=== PATIENT | male | born 1975 | race Caucasian/White ===

== ENCOUNTER → 2017-01-30 | Outpatient (CLI) | payer OTHER ==
[~2017-01-30] MED LIST: AMPH15CA3 PO; CARI350T PO; DIAZ5TAB3 PO; GABA-488 PO; OXYC-465 PO
--- NOTE | 2017-01-30 12:18 | Diagnostic Imaging Report ---
PROCEDURE: US abdomen complete. TECHNIQUE: Multiple real-time grayscale images were obtained over the abdomen in various projections. INDICATION: Generalized abdominal pain. FINDINGS: The pancreas is largely obscured by bowel gas. The liver is fairly homogeneous with no focal mass seen. It is slightly hyperechoic suggestive of fatty infiltration. The gallbladder demonstrates no stones or wall thickening. The CBD is 4 mm in caliber. The IVC is largely obscured with visualized portion in the mid abdomen demonstrating color flow. The abdominal aorta is largely obscured by bowel gas. The spleen is 9.3 cm in length, normal. The right kidney is 9.8 cm and the left kidney is 11.6 cm in length. There is no hydronephrosis or focal lesion. No ascites or fluid collection is seen in the abdomen or pelvis. Color Doppler in the jodi hepatis demonstrates hepatopetal flow in the portal vein. Sonographic Hodge's sign is reportedly negative. IMPRESSION: Suggestion of hepatic steatosis. No gallstones or evidence of cholecystitis. Dictated by: Dictated on workstation # [id number]
== END ==
LOC: RAD 06:50
PROVIDERS: ATTEND Internal Medicine
DX: R10.84 Generalized abdominal pain (principal)
CPT/HCPCS: 76700

== ENCOUNTER → 2017-06-18 | Outpatient (CLI) | payer OTHER ==
[2017-06-18 08:19] LABS: BASOPHILS % (AUTO) 0 % (0-10); EOSINOPHILS # (AUTO) 0.2 10^3/uL (0.0-0.3); EOSINOPHILS % (AUTO) 3 % (0-10); LYMPHOCYTES # (AUTO) 1.8 X 10^3 (1.0-4.0); LYMPHOCYTES % (AUTO) 24 % (12-44); MEAN CORPUSCULAR HEMOGLOBIN 31 PG (25-34); MEAN CORPUSCULAR HGB CONC 33 G/DL (32-36); MEAN CORPUSCULAR VOLUME 93 FL (80-99); MEAN PLATELET VOLUME 10.2 FL (7.4-10.4); MONOCYTES # (AUTO) 0.6 X 10^3 (0.0-1.0); MONOCYTES % (AUTO) 8 % (0-12); NEUTROPHILS % (AUTO) 65 % (42-75); PLATELET COUNT 243 10^3/uL (130-400); RED BLOOD COUNT 4.78 10^6/uL (4.35-5.85); RED CELL DISTRIBUTION WIDTH 12.2 % (10.0-14.5); WHITE BLOOD COUNT 7.7 10^3/uL (4.3-11.0)
[2017-06-18 08:35] LABS: ALANINE AMINOTRANSFERASE 37 U/L (0-55); ANION GAP 10 MMOL/L (5-14); ASPARTATE AMINO TRANSFERASE 23 U/L (5-34); BILIRUBIN,TOTAL 0.6 MG/DL (0.1-1.0); BLOOD UREA NITROGEN 17 MG/DL (7-18); BUN/CREATININE RATIO 19; CALCIUM 9.1 MG/DL (8.5-10.1); CARBON DIOXIDE 27 MMOL/L (21-32); CHLORIDE 105 MMOL/L (98-107); CHOLESTEROL 207 MG/DL (< 200); CREATININE SERUM 0.89 MG/DL (0.60-1.30); DIRECT LDL 116 MG/DL (1-129); GFR ESTIMATED > 60; GLUCOSE 90 MG/DL (70-105); SODIUM 142 MMOL/L (135-145); TOTAL PROTEIN 7.3 GM/DL (6.4-8.2); TRIGLYCERIDES 139 MG/DL (<150); VLDL CHOLESTEROL 28 MG/DL (5-40)
== END ==
LOC: LAB 07:50
PROVIDERS: ATTEND Internal Medicine
DX: E78.4 Other hyperlipidemia (principal); R50.9 Fever, unspecified; I10 Essential (primary) hypertension
CPT/HCPCS: 36415; 80053; 80061; 83036; 84443; 85025

== ENCOUNTER → 2017-08-26 | Outpatient (CLI) | payer OTHER ==
--- NOTE | 2017-08-26 11:44 | Diagnostic Imaging Report ---
PROCEDURE: US abdomen complete. TECHNIQUE: Multiple real-time grayscale images were obtained over the abdomen in various projections. INDICATION: Generalized abdominal pain. FINDINGS: The pancreas is largely obscured. The liver demonstrates hyperechogenicity suggestive of fatty infiltration with no focal mass identified. Hepatopetal flow in the portal vein is seen. The CBD is obscured. The gallbladder demonstrates no stones or wall thickening. The spleen is 9.8 cm in length, normal. The right kidney is 11.7 cm, and the left kidney is 11.5 cm in length. No hydronephrosis or focal lesion. No ascites or fluid collection is identified. The abdominal aorta and IVC are largely obscured. Sonographic Hodge sign reportedly negative. IMPRESSION: Increased hepatic echogenicity suggestive of fatty infiltration. ? Dictated by: Dictated on workstation # [id number]
== END ==
LOC: RAD 10:42
PROVIDERS: ATTEND Internal Medicine
DX: R10.84 Generalized abdominal pain (principal)
CPT/HCPCS: 76700

== ENCOUNTER 2017-09-16 10:39 | Outpatient (CLI) | payer OTHER ==
[~2017-09-16] VITALS: Ht 165.1 cm; Wt 70.3 kg
[2017-09-16 10:47] VITALS: BP 122/77
[2017-09-16] MEDS ORDERED: CITA20TA12 PO (10:51)
[2017-09-16] MEDS ORDERED: AMPH15TA PO (10:51)
[2017-09-16] MEDS ORDERED: MONT10TA24 PO (10:52)
[2017-09-16 11:05] LABS: BASOPHILS % (AUTO) 0 % (0-10); EOSINOPHILS # (AUTO) 0.2 10^3/uL (0.0-0.3); EOSINOPHILS % (AUTO) 2 % (0-10); LYMPHOCYTES % (AUTO) 23 % (12-44); MEAN CORPUSCULAR HEMOGLOBIN 31 PG (25-34); MEAN CORPUSCULAR HGB CONC 34 G/DL (32-36); MEAN CORPUSCULAR VOLUME 93 FL (80-99); MEAN PLATELET VOLUME 9.9 FL (7.4-10.4); MONOCYTES # (AUTO) 0.5 X 10^3 (0.0-1.0); MONOCYTES % (AUTO) 6 % (0-12); NEUTROPHILS # (AUTO) 5.9 X 10^3 (1.8-7.8); NEUTROPHILS % (AUTO) 68 % (42-75); PLATELET COUNT 238 10^3/uL (130-400); RED BLOOD COUNT 4.64 10^6/uL (4.35-5.85); WHITE BLOOD COUNT 8.6 10^3/uL (4.3-11.0)
[2017-09-16 11:29] LABS: ALANINE AMINOTRANSFERASE 57 U/L (0-55); ANION GAP 9 MMOL/L (5-14); ASPARTATE AMINO TRANSFERASE 29 U/L (5-34); BILIRUBIN,TOTAL 0.3 MG/DL (0.1-1.0); BLOOD UREA NITROGEN 20 MG/DL (7-18); BUN/CREATININE RATIO 18; CALCIUM 9.2 MG/DL (8.5-10.1); CARBON DIOXIDE 26 MMOL/L (21-32); CHLORIDE 106 MMOL/L (98-107); CREATININE SERUM 1.13 MG/DL (0.60-1.30); GFR ESTIMATED > 60; GLUCOSE 113 MG/DL (70-105); POTASSIUM 4.1 MMOL/L (3.6-5.0); SODIUM 141 MMOL/L (135-145); TOTAL PROTEIN 7.2 GM/DL (6.4-8.2)
== END 2017-09-16 11:00 | disposition home or self-care (01) ==
LOC: PREOP 10:39
PROVIDERS: ATTEND Surgery
DX: Z01.812 Encounter for preprocedural laboratory examination (principal); K82.8 Other specified diseases of gallbladder
CPT/HCPCS: 36415; 80053; 85025; 87081

== ENCOUNTER 2017-09-20 12:55 | Day surgery (SDC) | payer OTHER ==
[~2017-09-20] VITALS: Ht 165.1 cm; Wt 70.3 kg
[~2017-09-20 12:55] MED LIST changes: +AMPH15TA PO; +CITA20TA12 PO; +MONT10TA24 PO
[2017-09-20 13:06] VITALS: BP 136/91
[2017-09-20] MEDS ORDERED: metroNIDAZOLE 500 MG/100 ML IVPB (PRE-MIX) IV ONE (13:15)
[2017-09-20] MEDS ORDERED: ceFAZolin 1 GM/NS 50 ML IVPB IV ONE ×2 (13:15)
[2017-09-20] MEDS: LACTATED RINGERS 1,000 ML IV PRN ×2 (13:30→16:14)
[2017-09-20] MEDS ORDERED: MIDAZOLAM 2 MG/2 ML (VERSED) VIAL IV ONE (14:15)
[2017-09-20] MEDS ORDERED: SEVOFLURANE (ULTANE) 15 ML INHAL SOLN ONE ×7 (14:28→15:56)
[2017-09-20] MEDS ORDERED: ONDANSETRON 4 MG/2 ML (SDV) Z0FRAN ONE (14:28)
[2017-09-20] MEDS ORDERED: LIDOCAINE PF 2% 5 ML (XYLOCAINE) VIAL ONE (14:28)
[2017-09-20] MEDS ORDERED: proPOfol 200 MG/20 ML (DIPRIVAN) VIAL IV ONE (14:28)
[2017-09-20] MEDS ORDERED: DEXAMETHASONE 10 MG/ML (DECADRON) 1 ML VIAL ONE (14:28)
[2017-09-20] MEDS ORDERED: fentaNYL INJECTION 100 MCG/2 ML AMP ONE ×2 (14:29→14:58)
[2017-09-20] MEDS ORDERED: MIDAZOLAM 2 MG/2 ML (VERSED) VIAL ONE (14:29)
[2017-09-20] MEDS ORDERED: BUP/EPI 0.5% 1:200,000 (MARCAINE) 10ML VIAL IJ ONE (14:36)
--- NOTE | 2017-09-20 14:37 | Progress Note-Pre Operative ---
Pre-Operative Progress Note H&P Reviewed The H&P was reviewed, patient examined and no changes noted. Date Seen by Provider: Sep 05, 2017 Time Seen by Provider: 13:25 Date H&P Reviewed: Sep 20, 2017 Time H&P Reviewed: 14:37 Pre-Operative Diagnosis: GB Dyskinesia KEITH MAHER MD Sep 20, 2017 2:37 pm
[2017-09-20] MEDS ORDERED: NEOSTIGMINE (BLOXIVERZ ) 1 MG/1ML 10 ML VIAL ONE (15:30)
[2017-09-20] MEDS ORDERED: GLYCOPYRROLATE 0.2 MG/ML (ROBINUL) 2 ML VIAL ONE (15:30)
--- NOTE | 2017-09-20 15:49 | Operative Report ---
Operative Report Date of Procedure/Surgery Sep 20, 2017 Surgeon (s) KEITH MAHER MD Code Enforcement Supervisor (s): N/A Post-Operative Diagnosis 1. Gallbladder dyskinesia 2. Chronic cholecystitis Procedure Performed Robotic assisted cholecystectomy Description of Procedure Anesthesia Type: General Estimated blood loss (mL): Minimal Specimen(s) collected/removed Gallbladder Description of the Procedure Indication for procedure: This gentleman presented with biliary symptoms due to disconnection of the gallbladder, combined with chronic cholecystitis. He was offered cholecystectomy using minimally invasive technique with robotic assistance. Informed consent was obtained after reviewing the operative details and complications of wound infection, bile leak and persistence of his symptoms. Description of the procedure: He was placed supine on the operative table and general anesthesia induced. A gram of Ancef and 500 mg of Flagyl were administered intravenously as prophylaxis against wound infection. Sequential compression devices were placed around his legs, to minimize the risk of venous thrombosis. Abdomen was prepared and draped in the usual sterile manner. A supraumbilical incision was made and pneumoperitoneum established using Veress needle. Intra- abdominal pressure was maintained at 15 mmHg, using carbon dioxide insufflation. A 12 mm trocar was placed and anatomy visualized using the high definition, 3-dimensional laparoscope associated with da Yaa system. Under direct view, I placed an 8 mm trocar over each side of the abdomen, followed by a 5 mm trocar over the left subcostal region. The patient was then turned into reverse Trendelenburg position, with the right side tilted up. Robotic system was then docked in place. Gallbladder was rather thick due to chronic inflammation. The fundus was retracted cephalad and the infundibulum grasped with Cadiere forceps. Thickened tissue around the neck of the gallbladder was incised using the hook cautery, delineating the cystic duct and the artery. Both were divided between locking clips. Cholecystectomy was completed using the hook cautery. Gallbladder was then placed in an Endo Catch bag and removed via the supraumbilical trocar site. The fascia over this incision was closed using #1 Vicryl using the Hunter Rooney device, under direct laparoscopic view. Skin incisions were closed using 4-0 Vicryl, in a subcuticular fashion. 0.5 percent Marcaine with epinephrine was infiltrated along the incisions, both preemptively and at the conclusion of the operation. He tolerated the procedure well, was extubated in the operating room and taken to the recovery room in a stable condition. Findings of the Procedure See op report Allergies and Home Medications Allergies Coded Allergies: latex (Unverified Allergy, Mild, 08/17/11) Home Medications Citalopram Hydrobromide 20 Mg Tablet, 20 MG PO DAILY, (Reported) Dextroamphetamine/Amphetamine 15 Mg Tablet, 15 MG PO DAILY, (Reported) Gabapentin 300 Mg Capsule, 300 MG PO HS, (Reported) Montelukast Sodium 10 Mg Tablet, 10 MG PO DAILY, (Reported) KEITH MAHER MD Sep 20, 2017 3:49 pm
[2017-09-20] MEDS ORDERED: HYDR-3812 PO (15:50)
--- NOTE | 2017-09-20 15:51 | Discharge Inst-Simple/Standard ---
Discharge Inst-Standard Discharge Medications New, Converted or Re-Newed RX: RX on Chart Patient Instructions/Follow Up Plan of Care/Instructions/FU: Dressings off in 48 hours. Incentive spirometry. Follow-up in 3 weeks. Activity as Tolerated: Yes Discharge Diet: No Restrictions KEITH MAHER MD Sep 20, 2017 3:51 pm
[2017-09-20] MEDS ORDERED: KETOROLAC 30 MG/ML VIAL ONE (16:09)
[2017-09-20] MEDS ORDERED: morphine INJ 10 MG/ML 1ML (SYR OR VIAL) ONE (16:09)
[2017-09-20] MEDS ORDERED: HYDROmorphone (DILAUDID) 2 MG/ML VIAL ONE (16:09)
[2017-09-20] MEDS: morphine INJ 10 MG/ML 1ML (SYR OR VIAL) IVP PRN ×2 (16:15→16:20)
[2017-09-20] MEDS ORDERED: KETOROLAC 30 MG/ML VIAL IVP ONE (16:30)
[2017-09-20] MEDS ORDERED: PROMETHAZINE INJ 25 MG/ML (PHENERGAN) AMP IVP PRN (16:30)
[2017-09-20] MEDS ORDERED: ONDANSETRON 4 MG/2 ML (SDV) Z0FRAN IVP PRN (16:30)
[2017-09-20] MEDS: HYDROmorphone (DILAUDID) 2 MG/ML VIAL IVP PRN ×2 (16:35→16:48)
[2017-09-20 17:25] VITALS: BP 138/89
[2017-09-20] MEDS ORDERED: OXYC-197 PO (17:39)
[2017-09-20] MEDS ORDERED: oxyCODONE/APAP 5/325MG (PERCOCET 5) TABLET ONE (17:52)
[2017-09-20 18:00] VITALS: BP 140/89
[2017-09-20] MEDS ORDERED: oxyCODONE/APAP 5/325MG (PERCOCET 5) TABLET PO ONE (18:30)
[2017-09-20 18:35] VITALS: BP 130/88
[2017-09-20 19:00] VITALS: BP 130/88
== END 2017-09-20 19:15 | disposition home or self-care (01) ==
LOC: SDC 12:55
PROVIDERS: ATTEND Surgery
DX: K81.1 Chronic cholecystitis (principal); J45.909 Unspecified asthma, uncomplicated; F32.9 Major depressive disorder, single episode, unspecified; F41.9 Anxiety disorder, unspecified; F90.9 Attention-deficit hyperactivity disorder, unspecified type; G57.92 Unspecified mononeuropathy of left lower limb; Z79.899 Other long term (current) drug therapy; Z80.0 Family history of malignant neoplasm of digestive organs
CPT/HCPCS: 94664

== ENCOUNTER → 2018-09-10 | Outpatient (CLI) | payer OTHER ==
[~2018-09-10] MED LIST changes: +ACHD5005 PO; +OXYC1TAB87 PO
[2018-09-10 14:50] LABS: ALANINE AMINOTRANSFERASE 45 U/L (0-55); ALBUMIN 4.2 GM/DL (3.2-4.5); ALKALINE PHOSPHATASE 81 U/L (40-136); BILIRUBIN,TOTAL 0.6 MG/DL (0.1-1.0); BUN/CREATININE RATIO 20; CALCIUM 9.2 MG/DL (8.5-10.1); CARBON DIOXIDE 25 MMOL/L (21-32); CHLORIDE 104 MMOL/L (98-107); CHOLESTEROL 215 MG/DL (< 200); GFR ESTIMATED > 60; GLUCOSE 115 MG/DL (70-105); HDL CHOLESTEROL 71 MG/DL (40-60); POTASSIUM 4.1 MMOL/L (3.6-5.0); SODIUM 139 MMOL/L (135-145); TOTAL PROTEIN 7.5 GM/DL (6.4-8.2); TRIGLYCERIDES 88 MG/DL (<150); VLDL CHOLESTEROL 18 MG/DL (5-40)
[2018-09-10 14:51] LABS: BASOPHILS % (AUTO) 0 % (0-10); EOSINOPHILS # (AUTO) 0.1 10^3/uL (0.0-0.3); EOSINOPHILS % (AUTO) 1 % (0-10); HEMATOCRIT 43 % (40-54); HEMOGLOBIN 14.6 G/DL (13.3-17.7); LYMPHOCYTES # (AUTO) 1.9 X 10^3 (1.0-4.0); LYMPHOCYTES % (AUTO) 20 % (12-44); MEAN CORPUSCULAR HEMOGLOBIN 32 PG (25-34); MEAN CORPUSCULAR HGB CONC 34 G/DL (32-36); MEAN CORPUSCULAR VOLUME 93 FL (80-99); MEAN PLATELET VOLUME 9.8 FL (7.4-10.4); MONOCYTES # (AUTO) 0.6 X 10^3 (0.0-1.0); MONOCYTES % (AUTO) 7 % (0-12); NEUTROPHILS % (AUTO) 72 % (42-75); PLATELET COUNT 259 10^3/uL (130-400); RED BLOOD COUNT 4.62 10^6/uL (4.35-5.85); RED CELL DISTRIBUTION WIDTH 12.3 % (10.0-14.5); WHITE BLOOD COUNT 9.6 10^3/uL (4.3-11.0)
== END ==
LOC: LAB 14:40
PROVIDERS: ATTEND Internal Medicine
DX: Z00.00 Encounter for general adult medical examination without abnormal findings (principal); E78.00 Pure hypercholesterolemia, unspecified; E78.1 Pure hyperglyceridemia
CPT/HCPCS: 36415; 80053; 80061; 84443; 85025

== ENCOUNTER → 2019-05-12 | Outpatient (CLI) | payer OTHER ==
[2019-05-12 07:25] LABS: BASOPHILS % (AUTO) 0 % (0-10); EOSINOPHILS # (AUTO) 0.3 10^3/uL (0.0-0.3); EOSINOPHILS % (AUTO) 3 % (0-10); HEMATOCRIT 43 % (40-54); HEMOGLOBIN 14.5 G/DL (13.3-17.7); LYMPHOCYTES # (AUTO) 2.4 X 10^3 (1.0-4.0); LYMPHOCYTES % (AUTO) 29 % (12-44); MEAN CORPUSCULAR HEMOGLOBIN 31 PG (25-34); MEAN CORPUSCULAR HGB CONC 34 G/DL (32-36); MEAN CORPUSCULAR VOLUME 93 FL (80-99); MEAN PLATELET VOLUME 10.2 FL (7.4-10.4); MONOCYTES # (AUTO) 0.9 X 10^3 (0.0-1.0); MONOCYTES % (AUTO) 11 % (0-12); NEUTROPHILS # (AUTO) 4.6 X 10^3 (1.8-7.8); NEUTROPHILS % (AUTO) 56 % (42-75); PLATELET COUNT 247 10^3/uL (130-400); RED CELL DISTRIBUTION WIDTH 12.3 % (10.0-14.5); WHITE BLOOD COUNT 8.1 10^3/uL (4.3-11.0)
[2019-05-12 07:50] LABS: CARBON DIOXIDE 23 MMOL/L (21-32); CHLORIDE 106 MMOL/L (98-107); CREATININE SERUM 0.96 MG/DL (0.60-1.30); POTASSIUM 4.2 MMOL/L (3.6-5.0); SODIUM 139 MMOL/L (135-145)
[2019-05-12 07:51] LABS: ALANINE AMINOTRANSFERASE 39 U/L (0-55); ALBUMIN 3.9 GM/DL (3.2-4.5); ALKALINE PHOSPHATASE 75 U/L (40-136); BILIRUBIN,TOTAL 0.2 MG/DL (0.1-1.0); BUN/CREATININE RATIO 27; CALCIUM 8.9 MG/DL (8.5-10.1); CHOLESTEROL 220 MG/DL (< 200); GFR ESTIMATED > 60; GLUCOSE 87 MG/DL (70-105); HDL CHOLESTEROL 52 MG/DL (40-60); TRIGLYCERIDES 354 MG/DL (<150); VLDL CHOLESTEROL 71 MG/DL (5-40)
== END ==
LOC: LAB 07:10
PROVIDERS: ATTEND Internal Medicine
DX: Z00.00 Encounter for general adult medical examination without abnormal findings (principal); E78.00 Pure hypercholesterolemia, unspecified; E78.1 Pure hyperglyceridemia; R73.9 Hyperglycemia, unspecified
CPT/HCPCS: 36415; 80053; 80061; 83036; 84443; 85025

== ENCOUNTER → 2020-04-11 | Outpatient (CLI) | payer OTHER ==
[~2020-04-11] MED LIST changes: -DIAZ5TAB3 PO; +DIAZ5TAB49 PO; -MONT10TA24 PO; +MONT10TA26 PO
[2020-04-11 07:30] LABS: HEMOGLOBIN 14.2 G/DL (13.3-17.7); MEAN PLATELET VOLUME 9.9 FL (7.4-10.4); RED CELL DISTRIBUTION WIDTH 12.6 % (10.0-14.5); WHITE BLOOD COUNT 6.6 10^3/uL (4.3-11.0)
[2020-04-11 07:42] LABS: CHLORIDE 109 MMOL/L (98-107); POTASSIUM 3.9 MMOL/L (3.6-5.0); SODIUM 142 MMOL/L (135-145)
[2020-04-11 07:43] LABS: ALBUMIN 3.9 GM/DL (3.2-4.5)
[2020-04-11 07:44] LABS: CALCIUM 8.6 MG/DL (8.5-10.1); TRIGLYCERIDES 161 MG/DL (<150); VLDL CHOLESTEROL 32 MG/DL (5-40)
[2020-04-11 07:45] LABS: GLUCOSE 94 MG/DL (70-105); TOTAL PROTEIN 6.9 GM/DL (6.4-8.2)
[2020-04-11 07:46] LABS: CARBON DIOXIDE 25 MMOL/L (21-32)
[2020-04-11 07:47] LABS: BILIRUBIN,TOTAL 0.4 MG/DL (0.1-1.0)
[2020-04-11 07:49] LABS: ALKALINE PHOSPHATASE 62 U/L (40-136); CHOLESTEROL 207 MG/DL (< 200); CREATININE SERUM 1.11 MG/DL (0.60-1.30); GFR ESTIMATED > 60
[2020-04-11 07:50] LABS: BUN/CREATININE RATIO 20
[2020-04-11 07:51] LABS: HDL CHOLESTEROL 59 MG/DL (40-60)
[2020-04-11 07:52] LABS: ALANINE AMINOTRANSFERASE 57 U/L (0-55); URIC ACID 7.3 MG/DL (2.6-7.2)
--- NOTE | 2020-04-11 08:45 | Diagnostic Imaging Report ---
HISTORY: Joint pain. COMPARISON: 04/28/2015 TECHNIQUE: 3 views of the right and left hands. FINDINGS: No acute fracture or dislocation is seen in the hands bilaterally. Alignment appears normal. Joint spaces are generally preserved. No cortical erosions are seen. IMPRESSION: No acute or significant osseous abnormality is seen in the bilateral hands. Dictated by: Dictated on workstation # [id number]
--- NOTE | 2020-04-11 08:50 | Diagnostic Imaging Report ---
HISTORY: Joint pain TECHNIQUE: 3 views of the right and left feet. 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 Joint spaces are otherwise preserved. No cortical erosions are seen bilaterally. No acute fracture or dislocation is seen. There is a small left calcaneal enthesophyte. IMPRESSION: 1. No acute or significant osseous abnormalities are seen in the bilateral feet. Dictated by: Dictated on workstation # [id number]
[2020-04-11 10:47] LABS: BILIRUBIN,URINE NEGATIVE (NEGATIVE); CLARITY,URINE CLEAR; COLOR,URINE YELLOW; GLUCOSE, URINE (UA) NEGATIVE (NEGATIVE); KETONES,URINE NEGATIVE (NEGATIVE); LEUKOCYTE ESTERASE ,URINE NEGATIVE (NEGATIVE); NITRITE,URINE NEGATIVE (NEGATIVE); PROTEIN,URINE NEGATIVE (NEGATIVE)
[2020-04-11 11:01] LABS: BACTERIA,URINE NEGATIVE /HPF; SQUAMOUS EPITHELIAL CELL,UR RARE /HPF
== END ==
LOC: RAD 07:06
PROVIDERS: ATTEND Internal Medicine
DX: D64.9 Anemia, unspecified (principal); M25.50 Pain in unspecified joint; E78.5 Hyperlipidemia, unspecified; R53.83 Other fatigue; R21 Rash and other nonspecific skin eruption; R73.9 Hyperglycemia, unspecified
CPT/HCPCS: 36415; 80053; 80061; 81000; 82728; 83036; 83540; 84443; 84550; 85027; 85652; 86038; 86141; 86200; 86431

== ENCOUNTER → 2020-08-08 | Outpatient (CLI) | payer OTHER ==
[~2020-08-08] MED LIST changes: -OXYC-465 PO; +OXYC-556 PO
== END ==
LOC: LABNPT 08:07
PROVIDERS: ATTEND Family Medicine
DX: Z53.9 Procedure and treatment not carried out, unspecified reason (principal)

== ENCOUNTER → 2021-06-19 | Outpatient (CLI) | payer OTHER ==
[~2021-06-19] MED LIST changes: -MONT10TA26 PO; +MONT10TA32 PO
[2021-06-19 09:31] LABS: BASOPHILS % (AUTO) 1 % (0-10); EOSINOPHILS # (AUTO) 0.2 10^3/uL (0.0-0.3); EOSINOPHILS % (AUTO) 3 % (0-10); HEMATOCRIT 47 % (40-54); HEMOGLOBIN 15.5 g/dL (13.3-17.7); LYMPHOCYTES % (AUTO) 28 % (12-44); MEAN CORPUSCULAR HEMOGLOBIN 32 pg (25-34); MEAN CORPUSCULAR HGB CONC 33 g/dL (32-36); MEAN CORPUSCULAR VOLUME 96 fL (80-99); MEAN PLATELET VOLUME 10.4 fL (9.0-12.2); MONOCYTES # (AUTO) 0.7 10^3/uL (0.0-1.0); MONOCYTES % (AUTO) 10 % (0-12); NEUTROPHILS % (AUTO) 57 % (42-75); PLATELET COUNT 257 10^3/uL (130-400)
[2021-06-19 09:33] LABS: POTASSIUM 4.4 MMOL/L (3.6-5.0)
[2021-06-19 09:34] LABS: CALCIUM 9.3 MG/DL (8.5-10.1)
[2021-06-19 09:36] LABS: TOTAL PROTEIN 7.5 GM/DL (6.4-8.2)
[2021-06-19 09:37] LABS: BILIRUBIN,TOTAL 0.3 MG/DL (0.1-1.0)
[2021-06-19 09:39] LABS: CREATININE SERUM 1.05 MG/DL (0.60-1.30)
== END ==
LOC: LAB 09:20
PROVIDERS: ATTEND Internal Medicine
DX: Z00.00 Encounter for general adult medical examination without abnormal findings (principal); E78.1 Pure hyperglyceridemia; E78.00 Pure hypercholesterolemia, unspecified; R73.9 Hyperglycemia, unspecified
CPT/HCPCS: 36415; 80053; 80061; 83036; 84443; 85025

== ENCOUNTER → 2022-06-14 | Outpatient (CLI) | payer OTHER ==
[~2022-06-14] MED LIST changes: +MONT-40 PO; -MONT10TA32 PO
[2022-06-14 11:08] LABS: BASOPHILS # (AUTO) 0.1 10^3/uL (0.0-0.1); BASOPHILS % (AUTO) 1 % (0-10); EOSINOPHILS # (AUTO) 0.3 10^3/uL (0.0-0.3); EOSINOPHILS % (AUTO) 4 % (0-10); HEMATOCRIT 44 % (40-54); HEMOGLOBIN 14.9 g/dL (13.3-17.7); LYMPHOCYTES # (AUTO) 2.1 10^3/uL (1.0-4.0); LYMPHOCYTES % (AUTO) 26 % (12-44); MEAN CORPUSCULAR HEMOGLOBIN 31 pg (25-34); MEAN CORPUSCULAR HGB CONC 34 g/dL (32-36); MEAN CORPUSCULAR VOLUME 93 fL (80-99); MEAN PLATELET VOLUME 10.4 fL (9.0-12.2); MONOCYTES # (AUTO) 0.6 10^3/uL (0.0-1.0); MONOCYTES % (AUTO) 7 % (0-12); NEUTROPHILS # (AUTO) 4.9 10^3/uL (1.8-7.8); NEUTROPHILS % (AUTO) 62 % (42-75); PLATELET COUNT 257 10^3/uL (130-400); WHITE BLOOD COUNT 7.9 10^3/uL (4.3-11.0)
[2022-06-14 11:26] LABS: BILIRUBIN,TOTAL 0.5 MG/DL (0.1-1.0); CALCIUM 9.1 MG/DL (8.5-10.1); CREATININE SERUM 1.16 MG/DL (0.60-1.30); POTASSIUM 4.4 MMOL/L (3.6-5.0); TOTAL PROTEIN 7.2 GM/DL (6.4-8.2)
== END ==
LOC: LAB
PROVIDERS: ATTEND Internal Medicine
DX: Z00.00 Encounter for general adult medical examination without abnormal findings (principal); E78.1 Pure hyperglyceridemia; E78.00 Pure hypercholesterolemia, unspecified; R73.9 Hyperglycemia, unspecified
CPT/HCPCS: 36415; 80053; 80061; 83036; 84443; 85025

== ENCOUNTER 2023-07-03 10:34 | Outpatient (RCR) | payer BC, OTHER | END 2023-07-04 | disposition home or self-care (01) | PROVIDERS: ATTEND Internal Medicine | DX: M25.562 Pain in left knee (principal); M25.561 Pain in right knee ==

== ENCOUNTER 2023-08-01 11:25 | Outpatient (RCR) | payer BC | END 2023-08-03 | disposition home or self-care (01) | PROVIDERS: ATTEND Internal Medicine | DX: M25.562 Pain in left knee (principal); M25.561 Pain in right knee ==

== ENCOUNTER 2023-08-05 08:00 | Outpatient (RCR) | payer BC | END 2023-09-03 | disposition home or self-care (01) | PROVIDERS: ATTEND Internal Medicine | DX: M25.562 Pain in left knee (principal); M25.561 Pain in right knee; J45.909 Unspecified asthma, uncomplicated ==